=== PATIENT | male | born 1975 | race Two or more races ===

== ENCOUNTER 2025-03-04 09:57 | Emergency (ER) | payer OTHER ==
[~2025-03-04] VITALS: Ht 175.3 cm; Wt 98.9 kg
[2025-03-04] MEDS ORDERED: ZOLOFT20 MG/1 ML PO (10:53)
[2025-03-04] MEDS ORDERED: PROTONIX20 MG (10:53)
[2025-03-04] MEDS ORDERED: TRAMADOL HCL 50 MG TABLET PO ONE (11:15)
[2025-03-04 11:50] LABS: BASO % 0.3 % (0.1-1.2); EOS # 0.05 (0.04-0.54); EOS % 0.7 % (0.7-7.0); LYMPH # 2.20 (1.18-3.74); LYMPH % 29.3 % (19.3-53.1); MEAN PLATELET VOLUME 10.10 fl (9.4-12.4); MONO # 0.56 (0.24-0.82); MONO % 7.5 % (4.7-12.5); NEUT # 4.67 (1.56-6.13); NEUT % 62.1 % (34.0-71.1); RED CELL DISTRIBUTION WIDTH 12.3 % (11.6-14.4)
[2025-03-04 12:28] LABS: ALT/SGPT 58.0 U/L (12-78); AST/SGOT 28.0 U/L (15-37); BILIRUBIN TOTAL 0.6 mg/dL (0.3-1.2); BUN CREA RATIO 14.0 (7.0-25.0); CREATININE SERUM 0.96 mg/dL (0.70-1.30); GFR 82.58; GLOBULINA 3.9 G/DL (2.4-3.5); GLUCOSE FASTING 120.0 mg/dL (65-100); OSMOLALITY SERUM 281.0 MOSM/KG (275-295)
[2025-03-04 12:38] LABS: COVID-19 AG NEGATIVE (NEGATIVE)
== END 2025-03-04 13:36 | disposition home or self-care (01) ==
LOC: ER 09:58
PROVIDERS: General Practice
DX: S00.83XA Contusion of other part of head, initial encounter (principal); W18.39XA Other fall on same level, initial encounter; Y93.89 Activity, other specified; Y92.89 Other specified places as the place of occurrence of the external cause; J00 Acute nasopharyngitis [common cold]; Z20.822 Contact with and (suspected) exposure to COVID-19